=== PATIENT | female | born 1995 | race African-American/Black ===

== ENCOUNTER 2017-09-10 23:04 | Emergency (ER) | payer OTHER ==
[~2017-09-10] VITALS: Ht 170.2 cm; Wt 72.6 kg
[2017-09-10 23:12] VITALS: BP 125/78
[2017-09-10] MEDS ORDERED: diphenhydrAMINE HCL 25 MG CAPSULE PO ONE (23:30)
[2017-09-10] MEDS ORDERED: diphenhydrAMINE HCL 25 MG CAPSULE ONE (23:47)
== END 2017-09-11 00:29 | disposition home or self-care (01) ==
LOC: ER 23:07
DX: L25.9 Unspecified contact dermatitis, unspecified cause (principal); Z88.8 Allergy status to other drugs, medicaments and biological substances
CPT/HCPCS: 99282; A4606; Q0163; Z7610